=== PATIENT | female | born 1990 | race Caucasian/White ===

== ENCOUNTER 2021-01-13 07:18 | Day surgery (SDC) | payer OTHER ==
[2021-01-12 09:23] LABS: BASOPHILS % (AUTO) 1 % (0-1); EOSINOPHILS % (AUTO) 2 % (1-7); LYMPHOCYTES % (AUTO) 27 % (22-44); MEAN CORPUSCULAR HEMOGLOBIN 29.7 pg (27.0-34.8); MEAN CORPUSCULAR HGB CONC 33.3 g/dL (32.4-35.8); MEAN PLATELET VOLUME 8.6 fL (7.4-10.4); MONOCYTES % (AUTO) 9 % (2-9); NEUTROPHILS % (AUTO) 61 % (42-75); PLATELET COUNT 287 x10^3/uL (130-400); RED CELL DISTRIBUTION WIDTH 13.2 % (9.6-15.2)
[2021-01-12 09:25] LABS: MD NO
[2021-01-12 09:33] LABS: ALBUMIN 3.9 g/dL (3.4-5.0); ANION GAP 3 mmol/L (5-15); CALCIUM 8.9 mg/dL (8.5-10.1); CHLORIDE 112 mmol/L (98-107)
[2021-01-12 09:34] LABS: INTERNATIONAL NORMALIZED RATIO 0.96 (0.93-1.1); PROTHROMBIN TIME 10.3 Seconds (9.6-11.5)
[2021-01-12 09:39] LABS: ALANINE AMINOTRANSFERASE 80 U/L (12-78); ALKALINE PHOSPHATASE 93 U/L (45-117); BILIRUBIN,TOTAL 0.6 mg/dL (0.2-1.0); CREATININE 0.68 mg/dL (0.55-1.02); TOTAL PROTEIN 7.7 g/dL (6.4-8.2)
[~2021-01-13] VITALS: Ht 167.6 cm; Wt 75.7 kg
[2021-01-13] MEDS ORDERED: OXYcodone 5 MG/5 ML ORAL.SOL UDC PO PRN (07:30)
[2021-01-13] MEDS ORDERED: HYDROmorphone 1 MG/ML, 1ML INJ IVPush PRN (07:30)
[2021-01-13] MEDS ORDERED: ONDANSETRON 2MG/ML, 2ML IVPush PRN (07:30)
[2021-01-13] MEDS ORDERED: hydrALAzine 20 MG/ML, 1ML IV PRN (07:30)
[2021-01-13] MEDS ORDERED: FENTANYL PF 100 MCG/2ML IV PRN (07:30)
[2021-01-13] MEDS ORDERED: LABETALOL 5MG/ML, 20ML IV PRN (07:30)
[2021-01-13] MEDS ORDERED: EPHEDRINE 50 MG/ML, 1ML IVPush PRN (07:30)
[2021-01-13] MEDS ORDERED: PROMETHAZINE 25 MG/ML, 1ML IVPush PRN (07:30)
[2021-01-13] MEDS ORDERED: ACETAMINOPHEN 500 MG TABLET PO STA (07:45)
[2021-01-13 07:49] VITALS: BP 142/93
[2021-01-13] MEDS ORDERED: CHLORHEXIDINE 15 ML UDC PO ONE (08:00)
[2021-01-13] MEDS ORDERED: CEFOTETAN PMX 2GM/50ML 50 ML IVPB ONE (08:00)
[2021-01-13] MEDS ORDERED: LACTATED RINGERS 1,000 ML IV SCH (08:00)
[2021-01-13 08:16] LABS: AMPHETAMINE SCREEN, URINE Negative (Negative); BARBITURATE SCREEN, URINE Negative (Negative); BENZODIAZEPINE SCREEN, URINE Negative (Negative); CANNABINOID SCREEN, URINE Negative (Negative); COCAINE SCREEN, URINE Negative (Negative); METHADONE SCREEN, URINE Negative (Negative); OPIATE SCREEN, URINE Negative (Negative)
[2021-01-13] MEDS ORDERED: MIDAZOLAM 1 MG/ML, 2ML ONE (09:53)
[2021-01-13] MEDS ORDERED: FENTANYL PF 100 MCG/2ML ONE (09:53)
[2021-01-13] MEDS ORDERED: ONDANSETRON 2MG/ML, 2ML ONE (10:06)
[2021-01-13] MEDS ORDERED: KETOROLAC 30 MG/1 ML ONE (10:06)
[2021-01-13] MEDS ORDERED: DEXAMETHASONE 4 MG/ML, 5ML ONE (10:06)
[2021-01-13] MEDS ORDERED: PROPOFOL 10 MG/ML, 20ML ONE ×2 (10:06)
== END 2021-01-13 12:45 | disposition home or self-care (01) ==
LOC: OUT 07:18 → EDSTATUS 15:00
PROVIDERS: ATTEND Specialist
DX: C53.0 Malignant neoplasm of endocervix (principal); F17.210 Nicotine dependence, cigarettes, uncomplicated; F15.90 Other stimulant use, unspecified, uncomplicated; Z20.822 Contact with and (suspected) exposure to COVID-19; Z79.899 Other long term (current) drug therapy; Z79.01 Long term (current) use of anticoagulants
CPT/HCPCS: 36415; 57522; 80053; 80307; 84703; 85025; 85610; 85730; 88305; J1100; J1885; J2250; J2405; J2704; J3010; J7120; U0003

== ENCOUNTER → 2021-02-09 | Outpatient (CLI) | payer OTHER ==
[~2021-02-09] MED LIST: OMNIPAQUE 350 MG/ML, 100ML BOTTLE ONE
== END | disposition home or self-care (01) ==
LOC: CFH 14:22
PROVIDERS: ATTEND Specialist
DX: Z34.90 Encounter for supervision of normal pregnancy, unspecified, unspecified trimester (principal); C53.0 Malignant neoplasm of endocervix; R87.810 Cervical high risk human papillomavirus (HPV) DNA test positive; Z3A.00 Weeks of gestation of pregnancy not specified
CPT/HCPCS: 71260; 74177; Q9967

== ENCOUNTER → 2021-03-05 | Outpatient (CLI) | payer OTHER | END | disposition home or self-care (01) | LOC: PETCFH 08:01 | PROVIDERS: ATTEND Specialist | DX: C53.0 Malignant neoplasm of endocervix (principal); R87.810 Cervical high risk human papillomavirus (HPV) DNA test positive | CPT/HCPCS: 78815; A9552 ==